=== PATIENT | male | born 1970 | race Caucasian/White ===

== ENCOUNTER 2017-05-15 12:22 | Outpatient (CLI) | payer BC ==
[2017-05-15 14:05] LABS: Hematocrit 46.5 % (42.0-52.0); Mean Platelet Volume 7.2 fL (7.4-10.4); Red Blood Cell (RBC) Count 5.19 mill/uL (4.70-6.10); White Blood Cell (WBC) Count 7.6 thou/uL (4.8-10.8)
[2017-05-15 14:23] LABS: Anion Gap 13 mmol/L (10-20); BUN (Urea Nitrogen) 15 mg/dL (8.9-20.6); Calc. Creatinine Clearance 0 mL/min (70-130); Carbon Dioxide 24 mmol/L (22-29); Chloride 105 mmol/L (98-107); Estimated GFR-MDRD Greater than 90
[2017-05-15 14:27] LABS: PTT 29.3 SEC (22.9-36.1)
[2017-05-15 14:28] LABS: Prothrombin Time 12.8 SEC (12.0-14.7)
--- NOTE | 2017-05-15 22:12 | EKG ---
Test Reason : Blood Pressure : / mmHG Vent. Rate : 089 BPM Atrial Rate : 089 BPM P-R Int : 136 ms QRS Dur : 094 ms QT Int : 336 ms P-R-T Axes : 052 062 -01 degrees QTc Int : 408 ms Normal sinus rhythm Abnormal QRS-T angle, consider primary T wave abnormality Abnormal ECG No previous ECGs available Confirmed by EDER MAGUIRE, DR. Flores (4) on 05/15/2017 10:12:25 PM Referred By: RYAN Confirmed By:DR. Sandra GAINES MD
== END 2017-05-15 12:23 | disposition home or self-care (01) ==
LOC: LABBT 12:22
PROVIDERS: ATTEND Surgery
DX: Z01.818 Encounter for other preprocedural examination (principal); M48.061 Spinal stenosis, lumbar region without neurogenic claudication; M54.16 Radiculopathy, lumbar region
CPT/HCPCS: 80048; 85027; 85610; 85730; 93005; 93010

== ENCOUNTER 2017-05-16 11:35 | Inpatient (IN) | payer BC ==
[2017-05-16] MEDS ORDERED: CEFAZOLIN/Water 2 GM/20 ML SYRINGE ONE (13:31)
[2017-05-16] MEDS ORDERED: Thrombin 5000 UNITS/5 ML VIAL ONE (13:54)
[2017-05-16] MEDS ORDERED: Sodium Chloride 0.9% 10 ML ONE ×2 (13:54→18:59)
[2017-05-16] MEDS ORDERED: Midazolam HCl 2 mg/2 ml Vial ONE (13:57)
[2017-05-16] MEDS ORDERED: Bacitracin Zinc Ointment 30 gm TUBE ONE (13:59)
[2017-05-16] MEDS ORDERED: Lidocaine 2% PF 10 ML AMP (For Epidural Use) ONE (14:48)
[2017-05-16] MEDS ORDERED: Dexamethasone 20 MG/5 ML VIAL ONE (14:48)
[2017-05-16] MEDS ORDERED: Ketorolac Tromethamine 30 MG/ML VIAL ONE (14:48)
[2017-05-16] MEDS ORDERED: Ondansetron HCl/PF 4 MG/2 ML Vial ONE (14:48)
[2017-05-16] MEDS ORDERED: Propofol 200 MG/20 ML VIAL ONE (14:48)
[2017-05-16] MEDS ORDERED: Glycopyrrolate 0.2 MG/ML 5 ML SYRINGE ONE (14:48)
[2017-05-16] MEDS ORDERED: Fentanyl 100 MCG/2 ML VIAL ONE (15:09)
[2017-05-16] MEDS ORDERED: traMADol HCl 50 MG TAB PO PRN (17:13)
[2017-05-16] MEDS ORDERED: Mag-Al 1200 mg/1200 mg/30 ML UDCUP PO PRN (17:13)
[2017-05-16] MEDS ORDERED: tiZANidine HCl 4 MG TAB PO PRN (17:13)
[2017-05-16] MEDS ORDERED: Acetaminophen/Codeine 30-300mg Tablet PO PRN (17:13)
[2017-05-16] MEDS ORDERED: Bisacodyl 10 MG SUPP PR PRN (17:13)
[2017-05-16] MEDS ORDERED: Fleet Enema 133 ML BOT PR PRN (17:13)
[2017-05-16] MEDS ORDERED: Milk Of Magnesia 30 ML UDCUP PO PRN (17:13)
[2017-05-16] MEDS ORDERED: Promethazine HCl 25 MG/ML VIAL IM PRN ×2 (17:13→17:23)
[2017-05-16] MEDS ORDERED: Ondansetron HCl/PF 4 MG/2 ML Vial IVP PRN ×2 (17:23→17:46)
[2017-05-16] MEDS ORDERED: Promethazine HCl 25 MG/ML VIAL SLOW IVP PRN (17:23)
[2017-05-16] MEDS ORDERED: Ketorolac Tromethamine 30 MG/ML VIAL IM/IV PRN (17:46)
[2017-05-16] MEDS ORDERED: Promethazine HCl 25 MG/ML VIAL IM/IV PRN (17:46)
[2017-05-16] MEDS: HYDROcodone/Acetaminophen 7.5/325 mg Tablet PO PRN (20:38)
[2017-05-16] MEDS: Sodium Chloride 0.9% 1,000 ML IV SCH (22:45)
[2017-05-16] MEDS: CEFAZOLIN/Water 2 GM/20 ML SYRINGE SLOW IVP SCH (22:50)
[2017-05-16 23:29] VITALS: BMI 34.2
[2017-05-17] MEDS: HYDROcodone/Acetaminophen 7.5/325 mg Tablet PO PRN (04:39)
[2017-05-17] MEDS: Sodium Chloride 0.9% 1,000 ML IV SCH (06:26)
[2017-05-17 06:30] LABS: #Monocytes 0.9 thou/uL (0.11-0.59); %Basophils 0.1 % (0.0-1.0); %Eosinophils 0.1 % (0.0-10.0); %Lymphocytes 5.8 % (21.0-51.0); %Monocytes 5.1 % (0.0-10.0); Hematocrit 45.6 % (42.0-52.0); Mean Platelet Volume 6.4 fL (7.4-10.4); Red Blood Cell (RBC) Count 5.04 mill/uL (4.70-6.10)
[2017-05-17] MEDS: Propranolol HCl 20 MG TAB PO SCH ×2 (06:33→15:33)
[2017-05-17 06:55] LABS: Troponin I Less than 0.010 ng/mL (< 0.028)
[2017-05-17 06:56] LABS: Anion Gap 14 mmol/L (10-20); BUN (Urea Nitrogen) 15 mg/dL (8.9-20.6); BUN/Creatinine Ratio 14.56; Calc. Creatinine Clearance 177 mL/min (70-130); Calcium 9.3 mg/dL (7.8-10.44); Carbon Dioxide 24 mmol/L (22-29); Chloride 102 mmol/L (98-107); Estimated GFR-MDRD 77; Magnesium 1.9 mg/dL (1.6-2.6); Phosphorus 2.9 mg/dL (2.3-4.7)
[2017-05-17] MEDS: CEFAZOLIN/Water 2 GM/20 ML SYRINGE SLOW IVP SCH (07:38)
[2017-05-17 08:48] LABS: Hemoglobin A1c 5.2 % (4.0-6.0)
[2017-05-17] MEDS ORDERED: Losartan Potassium 25 MG TAB PO SCH (09:00)
[2017-05-17] MEDS ORDERED: Propranolol HCl 20 MG TAB PO SCH ×2 (09:00→16:00)
[2017-05-17] MEDS: Venlafaxine HCl XR 75 MG CAP PO SCH (10:13)
--- NOTE | 2017-05-17 10:38 | OP ---
WOUND TYPE: Type 1 wound. SURGEON: Sumanth Alaniz M.D. [employer]ARD DERRICK OPERATOR: Steven Otto PA-C. PREPROCEDURE DIAGNOSES: Left L5 radiculopathy with left L4-L5 disk extrusion. POSTPROCEDURE DIAGNOSES: Left L5 radiculopathy with left L4-L5 disk extrusion. PROCEDURE: 1. Left L4-L5 hemilaminotomy, foraminotomy, and diskectomy. 2. Use of operative microscope for microdissection. DESCRIPTION OF PROCEDURE: After informed consent was obtained from the patient, the patient was brou ght to OR 11. Proper patient pause and identification was carried out. He was placed in excellent g eneral endotracheal anesthesia and positioned prone on the operating room table. The L4-L5 segments were identified. A linear faraz was made over this region dorsally. This area was sterilely cleansed , prepared, and draped. Proper patient pause and identification was carried out. The wound was then opened with a combination of sharp, monopolar, and blunt dissection. The left L4-L5 hemilamina was exposed. Localization film confirmed our area of interest. We then performed a left L4-L5 hemilamin otomy, foraminotomy, and diskectomy with excellent decompression of the common dural tube and the lef t L4-L5 segment. Microscope was brought in for microdissection, working over the shoulder of the lef t L5 nerve root, identified disk material, this was removed. We were satisfied with our decompressio n. We then copiously irrigated the wound and closed the wound in anatomic layers following the sprin pham of vancomycin powder. The patient then emerged from anesthesia.
--- NOTE | 2017-05-17 11:11 | PRG ---
DATE OF SERVICE: 05/17/2017 SUBJECTIVE: Mr. Rogel is doing well postoperative day #01 from left L4-L5 hemilaminotomy, foraminot deep, and diskectomy. We achieved excellent decompression of his left L5 nerve root yesterday. His l eft leg pain has resolved. There was concern of atrial fibrillation as the patient has history of pa roxysmal atrial fibrillation. Medical colleagues are evaluating this. He sees Dr. Elaine. If he is stable from a medical standpoint, he can be dismissed today. His exam demonstrates good strength in his lower extremities.
[2017-05-17 13:58] LABS: Troponin I Less than 0.010 ng/mL (< 0.028)
--- NOTE | 2017-05-17 16:43 | PDOC.PN ---
- Subjective Encounter Start Date: 05/17/17 Encounter Start Time: 08:00 Patient seen and examined. Consult for medical mngt. HR in 120s - transferred to tele. EKG later showed SR. Patient follows Dr Elaine. Last time in Afib 2010. On Propranolol for Afib. Has been on Event monitor in the past. No CP/ pleuritic CP/leg swelling. - Objective MAR Reviewed: Yes Vital Signs & Weight: Vital Signs (12 hours) Temp Pulse Resp BP Pulse Ox 05/17/17 08:00 97.8 F 87 18 127/78 96 05/17/17 06:50 98.4 F 97 18 123/74 95 05/17/17 06:25 98.2 F 105 H 18 143/93 H 95 05/17/17 05:35 125 H Weight Weight 312 lb I&O: 05/16/17 05/17/17 05/18/17 06:59 06:59 06:59 Intake Total 900 Balance 900 Result Diagrams: 05/17/17 06:19 05/17/17 06:19 EKG Reviewed by me: Yes (SR) Phys Exam - Physical Examination Constitutional: NAD Respiratory: no wheezing, no rales, no rhonchi Symmetrical Cardiovascular: RRR, no significant murmur, no rub no heaves/pulsation Gastrointestinal: soft, non-tender, no distention, positive bowel sounds Musculoskeletal: no edema Neurological: non-focal, moves all 4 limbs Dx/Plan (1) Atrial fibrillation with RVR Code(s): I48.91 - UNSPECIFIED ATRIAL FIBRILLATION Status: Suspected Comment : EKG done late due to patient refusal per RN. (2) Paroxysmal A-fib Code(s): I48.0 - PAROXYSMAL ATRIAL FIBRILLATION Status: Chronic (3) Anxiety Code(s): F41.9 - ANXIETY DISORDER, UNSPECIFIED Status: Chronic (4) HTN (hypertension) Code(s): I10 - ESSENTIAL (PRIMARY) HYPERTENSION Status: Chronic (5) Chronic back pain Code(s): M54.9 - DORSALGIA, UNSPECIFIED; G89.29 - OTHER CHRONIC PAIN Status: Chronic (6) Obesity (BMI 30-39.9) Code(s): E66.9 - OBESITY, UNSPECIFIED Status: Chronic - Plan cont current plan of care, DVT proph w/SCDs * I d/w Dr Elaine - patient's primary Cardio - He suggested overnight monitoring & increase Propanolol to BID * Hold Losartan * Sleep study in the past negative per patient. * Cont to monitor * All questions anwered * Plan d/w patient/family - they stated understanding. Review of Systems - Review of Systems Constitutional: negative: Fever, Chills, Sweats, Weakness, Malaise, Other Respiratory: negative: Cough, Dry, Shortness of Breath, Hemoptysis, SOB with Excertion, Pleuritic Pain, Sputum, Wheezing Cardiovascular: Palpitations. negative: Chest Pain, Orthopnea, Paroxysmal Noc. Dyspnea, Edema, Light Headedness - Medications/Allergies Allergies/Adverse Reactions: Allergies Allergy/AdvReac Type Severity Reaction Status Date / Time No Known Allergies Allergy Verified 05/16/17 23:22 Medications: Current Medications Acetaminophen (Tylenol) 650 mg PO Q4H PRN PRN Reason: Headache/Fever or Pain Acetaminophen/Codeine Phosphate (Tylenol #3) 1 tab PO Q3H PRN PRN Reason: Mild Pain (1-3) Hydrocodone Bitart/Acetaminophen ([place] 7.5/325) 1 tab PO Q4H PRN PRN Reason: Moderate Pain (4-6) Last Admin: 05/17/17 04:39 Dose: 1 tab Al Hydroxide/Mg Hydroxide (Maalox) 30 ml PO Q4H PRN PRN Reason: Indigestion Allopurinol (Zyloprim) 100 mg PO DAILY BRAD Bisacodyl (Dulcolax) 10 mg [place] Q12H PRN PRN Reason: Constipation Sodium Chloride (Normal Saline 0.9%) 1,000 mls @ 75 mls/hr IV .[id number] [facility] Last Admin: 05/17/17 06:26 Dose: Not Given Magnesium Hydroxide (Milk Of Magnesium) 30 ml PO Q12H PRN PRN Reason: Constipation Morphine Sulfate (Morphine) 2 mg SLOW IVP Q1H PRN PRN Reason: Severe Pain (7-10) Promethazine HCl (Phenergan) 12.5 mg IM Q4H PRN PRN Reason: Nausea/Vomiting Propranolol HCl (Inderal) 20 mg PO TID [facility] Sodium Biphosphate/Sodium Phosphate (Fleet Enema) 133 ml [place] ONE PRN PRN Reason: Constipation Stop: 05/19/17 17:14 Sodium Chloride (Flush - Normal Saline) 10 ml IVF PRN PRN PRN Reason: Saline Flush Tizanidine HCl (Zanaflex) 4 mg PO Q6H PRN PRN Reason: Muscle Spasm Tramadol HCl (Ultram) 50 mg PO Q6H PRN PRN Reason: Mild Pain (1-3) Venlafaxine HCl (Effexor Xr) 75 mg PO DAILY BRAD
[2017-05-17] MEDS: Acetaminophen 325 MG TAB PO PRN (21:17)
[2017-05-18] MEDS: Acetaminophen 325 MG TAB PO PRN (03:35)
[2017-05-18] MEDS ORDERED: Acetaminophen 325 MG TAB PO PRN (03:46)
[2017-05-18] MEDS: Sodium Chloride 0.9% 1,000 ML IV SCH ×2 (04:34→10:16)
--- NOTE | 2017-05-18 07:54 | EKG ---
Test Reason : Blood Pressure : / mmHG Vent. Rate : 097 BPM Atrial Rate : 097 BPM P-R Int : 144 ms QRS Dur : 096 ms QT Int : 344 ms P-R-T Axes : 047 -09 031 degrees QTc Int : 436 ms Normal sinus rhythm Normal ECG When compared with ECG of 15-MAY-2017 12:54, Questionable change in QRS axis Nonspecific T wave abnormality has replaced inverted T waves in Inferior leads Confirmed by EDER MAGUIRE, SVesta (4) on 05/18/2017 7:54:21 AM Referred By: CLARENCE Confirmed By:DR. Sandra GAINES MD
[2017-05-18] MEDS ORDERED: Propranolol HCl 20 MG TAB PO SCH (09:00)
[2017-05-18] MEDS: Venlafaxine HCl XR 75 MG CAP PO SCH (10:14)
[2017-05-18] MEDS: Allopurinol 100 MG TAB PO SCH ×2 (10:15→10:16)
--- NOTE | 2017-05-18 10:32 | PDOC.EVN ---
Event Note - Event Note Event Note: Patient remained in SR overnight. Dr Elaine updated and agrees with the current plan of care. Propanolol 20 BID, Losartan only if SBP >130. No anticoag needed per Dr Elaine
[2017-05-18 11:30] VITALS: BP 121/74; TEMP 97.7
--- NOTE | 2017-05-18 16:32 | PRG ---
DATE OF SERVICE: 05/18/2017 Mr. Rogel is now postoperative day #2 having undergone laminectomy and diskectomy with Larry Rodriguez 4-L5. The patient was kept for monitoring overnight for some tachycardia, but this has resolved. Th e patient has been cleared medically and we will discharge later today. The patient is up sitting in a chair, eating a burrito. He states he is absolutely thrilled with his outcome postoperatively and denies any type of leg pain. He does complain of some incisional back pain, but states this is even better than when he was anticipating. He has good strength in the bilateral lower extremities. He has been up walking to the bathroom. He has tolerated solids and his pain is controlled with oral me dications. Again, he is cleared medically for discharge. We reviewed postoperative activity restric tions. He is pleased with his outcome. Steven Otto PA-C dictating for Dr. Sumanth Alaniz.
== END 2017-05-18 12:44 | disposition home or self-care (01) | DRG 520 ==
LOC: SDC 11:35 → SURG B 17:40 → 2NO 05-17 06:47
PROVIDERS: ADMIT Surgery; ATTEND Surgery
PROC: 0SB20ZZ Excision of Lumbar Vertebral Disc, Open Approach (ICD-10-PCS; principal; 2017-05-17)
DX: M51.16 Intervertebral disc disorders with radiculopathy, lumbar region (principal); I10 Essential (primary) hypertension; I48.0 Paroxysmal atrial fibrillation; F41.9 Anxiety disorder, unspecified; E66.9 Obesity, unspecified; Z68.30 Body mass index [BMI] 30.0-30.9, adult; M54.9 Dorsalgia, unspecified; M10.9 Gout, unspecified; M06.9 Rheumatoid arthritis, unspecified
CPT/HCPCS: 36415; 76001; 80069; 82553; 83036; 83735; 84443; 84484; 85025; 93005; 93010; A4216; J1100; J1170; J1885; J2001; J2250; J2405; J2704; J3010; J3370; J3490